=== PATIENT | male | born 1985 | race Caucasian/White ===

== ENCOUNTER 2021-04-21 06:54 | Inpatient (IN) | payer SELFPAY ==
[~2021-04-21] VITALS: Ht 172.7 cm; Wt 64.0 kg
[2021-04-21] MEDS ORDERED: PANTOPRAZOLE SODIUM 40 MG/VIAL IV STA (07:24)
[2021-04-21] MEDS ORDERED: SODIUM CHLORIDE 0.9% 1,000 ML IV ONE (07:30)
[2021-04-21 08:02] LABS: BASOPHILS % 0.9 % (0.0-2.0); EOSINOPHILS % 0.7 % (0.0-5.0); HEMATOCRIT. 37.9 % (42.0-52.0); HEMOGLOBIN. 12.8 g/dL (14.0-18.0); MEAN CORPUSCULAR HEMOGLOBIN 29.4 pg (28.0-32.0); MEAN CORPUSCULAR VOLUME 86.9 fL (80.0-94.0); MEAN PLATELET VOLUME 8.6 fl (7.4-10.4); MONOCYTES % 3.7 % (2.0-8.0); NEUTROPHILS % 81.7 % (40.0-76.0); PLATELET 305 x1000/uL (130-400); RED BLOOD CELL COUNT 4.36 mill/uL (4.7-6.1)
[2021-04-21 08:13] LABS: PROTHROMBIN TIME 10.6 sec (9.6-11.0)
[2021-04-21 08:27] LABS: CHLORIDE 106 mEq/L (98-107)
[2021-04-21] MEDS ORDERED: ONDANSETRON HCL 4MG/2ML INJ IV ONE ×2 (09:15→11:30)
[2021-04-21] MEDS ORDERED: MORPHINE SULFATE 4 MG/ML CPJ (NOT FOR IM USE) IV ONE ×2 (09:15→11:30)
[2021-04-21 10:21] LABS: CLARITY URINE CLEAR (CLEAR); COLOR URINE YELLOW (YELLOW); KETONES URINE NEGATIVE (NEGATIVE); LEUKOCYTE ESTERASE URINE NEGATIVE (NEGATIVE); NITRITE URINE NEGATIVE (NEGATIVE); OCCULT BLOOD URINE NEGATIVE (NEGATIVE); PROTEIN URINE NEGATIVE (NEGATIVE); SPECIFIC GRAVITY URINE 1.014 (1.005-1.030); UROBILINOGEN URINE 0.2 E.U./dL (0.2-1.0)
[2021-04-21 10:59] LABS: *AMPHETAMINES SCREEN URINE NEGATIVE (NEGATIVE); *BARBITURATES SCREEN URINE NEGATIVE (NEGATIVE); *BENZODIAZEPINES SCREEN URINE NEGATIVE (NEGATIVE); *COCAINE SCREEN URINE NEGATIVE (NEGATIVE); METHADONE URINE SCREEN NEGATIVE (NEGATIVE); OPIATES URINE SCREEN PRESUMTIVE POSITIVE (NEGATIVE)
[2021-04-21 11:00] LABS: CANNABINOID URINE SCREEN PRESUMTIVE POSITIVE (NEGATIVE); PHENCYCLIDINE URINE SCREEN NEGATIVE (NEGATIVE)
[2021-04-21] MEDS ORDERED: LEVOFLOXACIN 500MG PREMIX 100 ML IV ONE (11:30)
[2021-04-21] MEDS ORDERED: METRONIDAZOLE 500 MG PREMIX 100 ML IV ONE (11:30)
[2021-04-21 15:00] VITALS: BP 130/89
[2021-04-21] MEDS ORDERED: CEFTRIAXONE 1 G PREMIX 50 ML IV SCH (15:00)
[2021-04-21] MEDS ORDERED: IOHEXOL-300 100 ML BOTTLE ONE (15:16)
[2021-04-21 16:00] VITALS: BP 136/78
[2021-04-21] MEDS: MORPHINE SULFATE 2 MG/ML CPJ (NOT FOR IM USE) IV SCH ×2 (16:17→21:06)
[2021-04-21] MEDS: ONDANSETRON HCL 4MG/2ML INJ IV PRN (16:21)
[2021-04-21] MEDS: SODIUM CHLORIDE 0.9% 1,000 ML IV SCH (16:26)
[2021-04-21] MEDS ORDERED: PIPERACILLIN/TAZOBACTAM 3.375G in DEXT 5% WATER 50ML IV SCH (16:30)
[2021-04-21] MEDS ORDERED: PIPERACILLIN/TAZOBACTAM 3.375 G/VIAL IV SCH (18:00)
[2021-04-21] MEDS: METOCLOPRAMIDE HCL 10MG/2ML VIAL IV SCH (18:58)
[2021-04-21 20:00] VITALS: BP 102/60
[2021-04-21] MEDS ORDERED: METRONIDAZOLE 500 MG PREMIX 100 ML IV SCH (20:00)
[2021-04-21] MEDS: PIPERACILLIN/TAZOBACTAM 3.375G in DEXT 5% WATER 50ML IV SCH (20:59)
[2021-04-22] VITALS: BP 107/65
[2021-04-22] MEDS: METOCLOPRAMIDE HCL 10MG/2ML VIAL IV SCH ×3 (00:34→11:23)
[2021-04-22] MEDS: MORPHINE SULFATE 2 MG/ML CPJ (NOT FOR IM USE) IV SCH ×3 (01:32→10:46)
[2021-04-22] MEDS: PIPERACILLIN/TAZOBACTAM 3.375G in DEXT 5% WATER 50ML IV SCH ×2 (03:09→09:03)
[2021-04-22 04:00] VITALS: BP 113/69
[2021-04-22] MEDS: SODIUM CHLORIDE 0.9% 1,000 ML IV SCH (04:32)
[2021-04-22] MEDS: ONDANSETRON HCL 4MG/2ML INJ IV PRN (04:32)
[2021-04-22 06:13] LABS: BASOPHILS % 0.3 % (0.0-2.0); EOSINOPHILS % 0.1 % (0.0-5.0); HEMATOCRIT. 35.7 % (42.0-52.0); HEMOGLOBIN. 11.8 g/dL (14.0-18.0); LYMPHOCYTES % 19.3 % (20.0-50.0); MEAN CORPUSCULAR HEMOGLOBIN 28.8 pg (28.0-32.0); MEAN CORPUSCULAR VOLUME 87.2 fL (80.0-94.0); NEUTROPHILS % 74.3 % (40.0-76.0); PLATELET 282 x1000/uL (130-400); RED CELL DISTRIBUTION WIDTH 14.7 % (11.6-14.6)
[2021-04-22 06:22] LABS: CHLORIDE 107 mEq/L (98-107)
[2021-04-22 08:00] VITALS: BP 98/68
[2021-04-22 10:46] VITALS: BP 115/76
== END 2021-04-22 11:50 | disposition left against medical advice (07) | DRG 249 ==
LOC: ER 07:11 → ENRESERV 13:06 → 6EST 14:50
PROVIDERS: ADMIT Family Medicine; ATTEND Family Medicine
DX: K52.9 Noninfective gastroenteritis and colitis, unspecified (principal); D64.9 Anemia, unspecified; F12.90 Cannabis use, unspecified, uncomplicated; Z53.29 Procedure and treatment not carried out because of patient's decision for other reasons
CPT/HCPCS: 36415; 74177; 80053; 80305; 81003; 83605; 85025; 99285; C9113; J1956; J2270; J2405; J2543; J2765; J3490; J7030; J7042; J7060; Q9967